=== PATIENT | female | born 1990 ===

== ENCOUNTER 2017-05-27 05:59 | Day surgery (SDC) | payer OTHER ==
[2017-05-27 06:37] VITALS: BMI 28.3
[2017-05-27] MEDS ORDERED: Ferric Subsulfate Sol(60 mL) ONE (08:23)
[2017-05-27] MEDS ORDERED: Silver Nitrate Topical - Stick ONE (08:24)
[2017-05-27] MEDS ORDERED: Strong Iodine Topical Sol. 5%-10% ONE (08:26)
[2017-05-27] MEDS ORDERED: Lactated Ringer's 1,000 ML IV ONE (08:40)
[2017-05-27] MEDS ORDERED: Lactated Ringer's 1,000 ML IV PRN (09:49)
[2017-05-27] MEDS ORDERED: HYDROmorphone 0.5 mg/0.5 ml ISec IVP PRN (09:49)
[2017-05-27 09:54] VITALS: RESP 18
[2017-05-27 11:08] VITALS: BP 111/54; PULSE 75; TEMP 98; O2SAT 98
== END 2017-05-27 11:35 | disposition home or self-care (01) ==
LOC: H.OPSURG 05:59
PROVIDERS: ATTEND Obstetrics & Gynecology
DX: N87.9 Dysplasia of cervix uteri, unspecified (principal)
CPT/HCPCS: 57522; 88305; J7120